=== PATIENT | male | born 1950 | race Caucasian/White ===

== ENCOUNTER 2016-07-30 13:57 | Emergency (ER) | payer BC ==
[2016-07-30 14:03] VITALS: TEMP 98.4
--- NOTE | 2016-07-30 14:16 | EDPHY ---
H & P Time Seen by Provider: 07/30/16 14:01 HPI/ROS: CHIEF COMPLAINT: Left lower quadrant abdominal pain HPI: The patient is a 65-year-old male with a history of diverticulitis approximately 10 years ago. Patient complains of approximately 2 days of pain in his left lower quadrant, which is made worse with certain movements and palpation. He states this pain reminds him very much of when he had diverticulitis. At that time, he was given antibiotics and no surgery was performed. Patient denies trauma, dysuria, vomiting. He states he has had a low -grade fever at home. REVIEW OF SYSTEMS: Aside from elements discussed in the HPI, a comprehensive 10-point review of systems was reviewed and is negative. PMH: Diverticulitis, no history of abdominal surgery. SOCIAL HISTORY: . Denies alcohol or drug abuse. PHYSICAL EXAM: General:Patient is alert, in no acute distress. Patient appears well. ENT:Eyes are normal to inspection. ENT inspection normal. Neck: Normal inspection. Full range of motion. Respiratory:No respiratory distress. Breath sounds normal bilaterally. Cardiovascular: Regular rate and rhythm. Strong peripheral pulses. Normal cap refill. Abdomen: Moderate tenderness to palpation is present in left lower quadrant. Remainder of abdomen is nontender.. There are no peritoneal signs. There are normal bowel sounds. Back: Normal to inspection. No tenderness to palpation. Skin: Normal color. No rash. Warm and dry. Extremities: Normal appearance. Full range of motion. Neuro: Oriented x3. Normal motor function. Normal sensory function. Smoking Status: Former smoker Constitutional: Initial Vital Signs Temperature (C) 36.9 C 07/30/16 14:00 Heart Rate 88 07/30/16 14:00 Respiratory Rate 16 07/30/16 14:00 Blood Pressure 131/74 H 07/30/16 14:00 O2 Sat (%) 95 07/30/16 14:00 Allergies/Adverse Reactions: No Known Allergies Allergy (Unverified 07/30/16 14:03) Home Medications: Medication Instructions Recorded Ciprofloxacin [Cipro] 500 mg PO TID #30 tab 07/30/16 Lisinopril 07/30/16 metroNIDAZOLE [Flagyl] 500 mg PO BID #20 tab 07/30/16 MDM/Departure - [facility] [place] ED Course/Re-evaluation: This patient presents with left lower quadrant pain that reminds him of prior episode of diverticulitis. His exam is consistent with this diagnosis. I presented the patient with two options, 1st, to treat empirically with outpatient antibiotics, but with the understanding that the diagnosis of diverticulitis is not confirmed. Or, second, to perform blood work and a CT scan of the abdomen and pelvis to confirm the diagnosis of diverticulitis. Patient elects to go with the 1st option, to receive empiric antibiotics without any further testing here in the emergency department. Patient fully understands that I am unable to confirm the diagnosis of diverticulitis and that he may worsen should this be incorrect diagnosis. He promises to return for any worsening of condition. - Depart Disposition: Home, Routine, Self-Care Clinical Impression: Acute diverticulitis Condition: Good Instructions: Diverticulitis (ED) Additional Instructions: You have chosen to not undergo blood work or imaging. As such, it is impossible to know for certain that your diagnosis is diverticulitis, so please keep a close eye on your symptoms. Return to the emergency department immediately for severe pain, high fever or failure to improve within the next 48 hours. Follow up with your primary physician within the next week. Prescriptions: Ciprofloxacin [Cipro] 500 mg PO TID #30 tab metroNIDAZOLE [Flagyl] 500 mg PO BID #20 tab Referrals: Gabrielle Belle MD [Primary Care Provider] - As per Instructions
[2016-07-30 14:34] VITALS: BP 137/62; PULSE 78; RESP 18; O2SAT 97
== END 2016-07-30 14:33 | disposition home or self-care (01) ==
LOC: CED 13:57
DX: K57.92 Diverticulitis of intestine, part unspecified, without perforation or abscess without bleeding (principal); Z87.891 Personal history of nicotine dependence